=== PATIENT | male | born 1935 | race Two or more races ===

== ENCOUNTER 2018-05-19 22:01 | Inpatient (IN) | payer OTHER ==
[~2018-05-19] VITALS: Ht 172.7 cm; Wt 106.0 kg
[~2018-05-19 22:01] MED LIST: AMARYL4 MG PO; ANTIVERT25 MG PO; CENTRUM SILVER1 EAC3 PO; CRESTOR40 MG PO; FENOFIBRATE134 M1 PO; GLIMEPIRIDE4 MG PO; IRON325 M1 PO; JANUVIA100 MG PO; LO-DOSE ASPIRIN81 M2 PO; MECLIZINE HCL25 MG PO; MEGARED OMEGA-1 EAC1 PO; METFORMIN HCL1000 MG PO; METOPROLOL TART25 MG PO; SYSTANE 0.3-0.1 EACH BOTH EYES; TYLENOL EXTRA500 MG PO; VALSARTAN80 MG PO
[2018-05-20 06:38] VITALS: BP 153/72
[2018-05-20 16:00] VITALS: BP 149/68
[2018-05-20 20:49] VITALS: BP 144/69
[2018-05-20 23:34] VITALS: BP 159/68
[2018-05-21 03:58] VITALS: BP 149/69
[2018-05-21 05:25] LABS: HEMATOCRIT 37.2 % (38.0-50.0); MCV 93.7 FL (86-99)
[2018-05-21 05:26] LABS: HEMOGLOBIN 12.6 G/DL (12.5-16.6)
[2018-05-21 05:52] LABS: CHLORIDE 103 MEQ/L (99-109); CREATININE 1.1 MG/DL (0.6-1.3); GFR ESTIMATE (CALCULATED) > 59 mL/min/ (58.99-99999); GLUCOSE 169 mg/dL (70-99); POTASSIUM 4.2 MEQ/L (3.7-5.4); SODIUM 139 MEQ/L (136-147); UREA NITROGEN (BUN) 23 mg/dL (9-23)
[2018-05-21 08:31] VITALS: BP 140/70
[2018-05-21] MEDS ORDERED: ELIQUIS2.5 MG PO (10:01)
[2018-05-21] MEDS ORDERED: OXYCODONE HCL5 MG PO (10:01)
[2018-05-21 12:16] VITALS: BP 149/70
[2018-05-21 17:46] VITALS: BP 155/82
[2018-05-21 23:30] VITALS: BP 143/67
[2018-05-22 06:23] LABS: HEMATOCRIT 37.8 % (38.0-50.0); MCV 92.4 FL (86-99)
[2018-05-22 07:58] VITALS: BP 164/80
== END 2018-05-22 15:16 | DRG 470 ==
LOC: ENRESERV 22:01 → 3EAST 05-20 05:48 → 2SOUTH 05-20 05:48 → ENRESERV 05-20 09:03 → 3EAST 05-20 10:22 → 2SOUTH 05-20 11:42 → 3EAST 05-22 15:16
PROVIDERS: Orthopaedic Surgery
PROC: 0SRD0J9 Replacement of Left Knee Joint with Synthetic Substitute, Cemented, Open Approach (ICD-10-PCS; principal; 2018-05-20)
DX: M17.12 Unilateral primary osteoarthritis, left knee (principal); I25.10 Atherosclerotic heart disease of native coronary artery without angina pectoris; Z95.1 Presence of aortocoronary bypass graft; I10 Essential (primary) hypertension; E78.5 Hyperlipidemia, unspecified; E66.01 Morbid (severe) obesity due to excess calories; Z68.35 Body mass index [BMI] 35.0-35.9, adult; E11.9 Type 2 diabetes mellitus without complications
CPT/HCPCS: 80048; 82948; 85014; 85018; C1713; J0330; J0690; J1815; J1885; J2405; J2795; J3475; J7030; J7050; J7643; S0020

== ENCOUNTER 2018-05-24 11:29 | Emergency (ER) | payer OTHER ==
[~2018-05-24] VITALS: Ht 172.7 cm; Wt 94.5 kg
[~2018-05-24 11:29] MED LIST changes: +ELIQUIS2.5 MG PO; +OXYCODONE HCL5 MG PO
[2018-05-24 16:37] VITALS: BP 153/88
== END 2018-05-24 16:38 | disposition home or self-care (01) ==
LOC: EME 11:29
DX: R51 Headache (principal); I10 Essential (primary) hypertension; E78.5 Hyperlipidemia, unspecified; E11.9 Type 2 diabetes mellitus without complications; Z79.84 Long term (current) use of oral hypoglycemic drugs; I25.10 Atherosclerotic heart disease of native coronary artery without angina pectoris; Z95.1 Presence of aortocoronary bypass graft; Z96.651 Presence of right artificial knee joint; Z79.01 Long term (current) use of anticoagulants; I25.2 Old myocardial infarction; Z79.82 Long term (current) use of aspirin
CPT/HCPCS: 70450; 93005; 99281; 99284